=== PATIENT | male | born 1950 | race Caucasian/White ===

== ENCOUNTER → 2025-01-25 13:36 | Outpatient (REF) | payer OTHER, SELFPAY | LOC: RAD 13:36 | PROVIDERS: ATTENDING PHYSICIAN Specialist; FAMILY PHYSICIAN Family Medicine | DX: R79.89 Other specified abnormal findings of blood chemistry (principal); I10 Essential (primary) hypertension; N20.0 Calculus of kidney | CPT/HCPCS: 93975 ==

== ENCOUNTER → 2025-02-08 12:50 | Outpatient (REF) | payer OTHER, SELFPAY | LOC: RAD 12:50 | PROVIDERS: ATTENDING PHYSICIAN Specialist; FAMILY PHYSICIAN Nurse Practitioner Adult Health | DX: R79.89 Other specified abnormal findings of blood chemistry (principal); I10 Essential (primary) hypertension; N20.0 Calculus of kidney | CPT/HCPCS: 76770 ==

== ENCOUNTER → 2025-02-15 13:17 | Outpatient (REF) | payer OTHER, SELFPAY | LOC: RAD 13:17 | PROVIDERS: ATTENDING PHYSICIAN Specialist; FAMILY PHYSICIAN Nurse Practitioner Adult Health | DX: I10 Essential (primary) hypertension (principal); N20.0 Calculus of kidney; N18.1 Chronic kidney disease, stage 1; N28.1 Cyst of kidney, acquired; E83.50 Unspecified disorder of calcium metabolism | CPT/HCPCS: 74178; Q9967 ==